=== PATIENT | female | born 1935 | race Caucasian/White ===

== ENCOUNTER 2016-10-25 15:00 | Observation (INO) | payer OTHER ==
--- NOTE | ~2016-10-25 | HP ---
History And Physical [id number] [place]. [address] NAME: DAISY GARCIA : 31 STATUS : ADM Khloe PAT#: [id number] AGE: 81 ADM/REG DATE : 10/25/16 MR#: [id number] REPORT SERV DATE: 10/26/16 DICTATED BY: YEMI VEGA JR. DATE: 10/26/16 REPORT STATUS : Draft TRANSCRIBED BY: MODBenjamin DATE: 10/26/16 DATE OF ADMISSION: 10/25/2016 CHIEF COMPLAINT: Palpitations, chest pain. 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 She then developed palpitations, felt weak and dizzy over 15-hour period and finally called an ambulance. She is noted to be in atrial fibrillation/flutter, heart rate greater than 140 beats per minute with a right bundle- branch block. She was treated and converted to sinus rhythm in the ambulance. She has since remained in sinus rhythm and has had no further symptom issues. Troponin has been borderline and likely related to demand ischemia. Currently, she is asymptomatic. REVIEW OF SYSTEMS: A 10-point review of systems otherwise is unremarkable. ALLERGIES: NONE KNOWN. MEDICATIONS: Included acetaminophen, albuterol Pro inhaler, aspirin 81 mg daily, Zyrtec 10 mg daily as needed, Trusopt eyedrops, Flonase nasal spray, glucosamine chondroitin sulfate, omeprazole 20 mg daily, simvastatin 40 mg at bedtime, triamcinolone cream, Maxzide 25 daily, and Travatan eye drops. PAST MEDICAL HISTORY: Notable for history of glaucoma, history of hypertension and hyperlipidemia, history of asthma, gastroesophageal reflux, arthritis, and cataracts. PAST SURGICAL HISTORY: Notable for prior benign cysts removed from her breast, colonoscopy, cataract resection. SOCIAL HISTORY: Notable for absence of tobacco or ethanol use. FAMILY HISTORY: Noncontributory. PHYSICAL EXAMINATION: VITAL SIGNS: Blood pressure is 133/68, pulse is 70 and regular, respirations 14. The patient is afebrile. HEENT: Unremarkable. NECK: Supple without jugular venous distention. CARDIOVASCULAR: Regular rhythm, 1/6 systolic murmur. LUNGS: Clear. ABDOMEN: Benign without hepatomegaly. EXTREMITIES: 1+ with no pedal edema. NEUROLOGIC: She is grossly intact. History And Physical [address] [address] NAME: DAISY GARCIA : 33 STATUS : ADM Khloe PAT#: [id number] AGE: 81 ADM/REG DATE : 10/25/16 MR#: [id number] REPORT SERV DATE: 10/26/16 DICTATED BY: YEMI VEGA JR. DATE: 10/26/16 REPORT STATUS : Draft TRANSCRIBED BY: MODL DATE: 10/26/16 IMAGING: EKG is notable for sinus rhythm with incomplete right bundle-branch block, minor nonspecific ST changes, left axis deviation. Chest x-ray reported unremarkable. LABORATORY DATA: Sodium 135, potassium 3.3, chloride 99, CO2 not performed, BUN 17, creatinine 0.9, glucose of 95, calcium 9.4, magnesium 2.4. Hemoglobin and hematocrit are 13.8 and 41.0, white count 5, platelet count of 307,000. INR of 1, troponin of 0.07 and 0.09, TSH of 1.9. IMPRESSION: An 81-year-old white female with hypokalemia, recent gastroenteritis, atrial fibrillation with rapid ventricular rate with demand ischemia. PLANS AND RECOMMENDATIONS: 1. Correction of electrolytes. 2. Nuclear stress. 3. Echo. 4. CHADS score risk assessment with plans for Electrophysiology consultation with further recommendations to follow. XIOMARA/ANAND Yemi Vega Jr., M.D. / [id number] CC: Nara Powell Jr., M.D.
--- NOTE | ~2016-10-25 | ECH ---
Echocardiogram [facility] [address] [place]. [address] NAME: DAISY GARCIA : 31 STATUS : DIS Khloe PAT#: [id number] AGE: 81 ADM/REG DATE : 10/25/16 MR#: [id number] REPORT SERV DATE: 10/27/16 DICTATED BY: YEMI VEGA JR. DATE: 10/27/16 REPORT STATUS : Draft TRANSCRIBED BY: MODL DATE: 10/27/16 INDICATIONS: Chest pain, arrhythmia, palpitations, atrial fibrillation. TECH: Lana Wayne is RDCS. 2-D INTERPRETATION: M-mode and 2-dimensional echocardiography were performed. The left atrium was normal in size measuring 3 cm compared to an aortic root diameter of 3.1 cm. The left ventricle is normal in size measuring 3.4 cm in end-diastole and 2.5 cm in end-systole. Overall, there appeared to be normal left ventricular systolic function without regional wall motion abnormality with ejection fraction approximately 60%. The aortic valve was trileaflet. The mitral valve appeared to be thickened and sclerotic. The remaining cardiac valves appeared to be structurally normal. No obvious pericardial or pleural effusion could be seen. No intracardiac mass could be identified. DOPPLER/COLOR FLOW: Conventional and Doppler color flow imaging were performed. Mitral inflow patterns were abnormal suggesting diminished left ventricular compliance for the patient's age. There was mild mitral insufficiency. There was tricuspid insufficiency. Peak right ventricular systolic pressure of 19 mmHg. Peak gradient across the aortic valve measured 5 mmHg. Neither significant stenosis or insufficiency of the remaining cardiac valves could be visualized. CONCLUSION: NORMAL LEFT VENTRICULAR SYSTOLIC FUNCTION WITH DIMINISHED LEFT VENTRICULAR COMPLIANCE. MITRAL VALVE SCLEROSIS AND CALCIFICATION WITH MILD MITRAL INSUFFICIENCY. TRICUSPID INSUFFICIENCY WITH NORMAL PULMONARY PRESSURES. /ANAND Yemi Vega Jr., M.D. / [id number] CC: Nara Powell Jr., M.D.
--- NOTE | ~2016-10-25 | CN ---
Consultation Report [address] [place]. [address] NAME: DAISY CHILDERS : 31 STATUS : DIS Khloe PAT#: [id number] AGE: 81 ADM/REG DATE : 10/25/16 MR#: [id number] REPORT SERV DATE: 10/26/16 DICTATED BY: ANKUR RAMÍREZ DATE: 10/26/16 REPORT STATUS : Draft TRANSCRIBED BY: MODL DATE: 10/26/16 CONSULTATION DATE OF CONSULTATION: 10/26/2016 REASON FOR THE VISIT: Atrial fibrillation. HISTORY OF PRESENT ILLNESS: Ms. Childers is an 81-year-old, overall healthy active female, who has presented with chest pain that turned out to be atrial fibrillation. She has undergone a stress test that was negative today. She reports no other episodes like this. When she was picked up by the ambulance, she was in atrial fibrillation but that resolved quickly. She has had no more atrial fibrillation since she has been here. As above, she remains active and has no limitations because of chest pain or shortness of breath. No recent syncope or presyncope. PAST MEDICAL HISTORY: 1. Hypertension. 2. Hyperlipidemia. 3. History of asthma. 4. GERD. 5. Arthritis. SOCIAL HISTORY: She does not smoke. FAMILY HISTORY: Noncontributory. HOME MEDICATIONS: 1. Tylenol. 2. Albuterol inhaler. 3. Aspirin 81 mg daily. 4. Zyrtec 10 mg as needed. 5. Flonase inhaler. 6. Prilosec 20 mg daily. 7. Zocor 40 mg daily. 8. Maxzide 37.5/25 mg daily. 9. Eye drops. ALLERGIES: NO KNOWN DRUG ALLERGIES. REVIEW OF SYSTEMS: A 10 system review was asked and is basically negative except for noted above in history of present illness. As above, she was in her present state of health which was very good before this occurred. Consultation Report [address] [place]. [address] NAME: DAISY CHILDERS : 31 STATUS : DIS Khloe PAT#: [id number] AGE: 81 ADM/REG DATE : 10/25/16 MR#: [id number] REPORT SERV DATE: 10/26/16 DICTATED BY: AKNUR RAMÍREZ DATE: 10/26/16 REPORT STATUS : Draft TRANSCRIBED BY: MODL DATE: 10/26/16 PHYSICAL EXAMINATION: VITAL SIGNS: Ms. Childers is afebrile with temperature of 97.9, heart rate 83, blood pressure 127/75. GENERAL: Ms. Childers is a well-developed female, in no acute distress. She is alert and oriented to person and place. HEENT: Negative. She is not dehydrated. LUNGS: Clear. NECK: No JVD is seen in her neck. HEART: Tones are regular. No major murmur is heard. ABDOMEN: Negative. She has good bowel sounds. EXTREMITIES: Does not show edema. NEUROLOGIC: She is intact with normal speech and normal strength in her arms bilaterally. SKIN: Does not show bruising. LABORATORY DATA: White blood cell count 5, hematocrit 41, platelet count 307. INR 1.0. Sodium 134, potassium 4.0, BUN 18, creatinine 0.8, magnesium 2.3. Troponin peaked at 0.09. TSH 1.9. ELECTROCARDIOGRAM: The initial electrocardiogram from the [facility] documents atrial fibrillation with a rapid ventricular response. The electrocardiogram here about 04:00 a.m. this morning shows sinus rhythm in the 70s. Normal axis. Good R-wave progression. No other major findings. Nuclear medicine stress test, this was performed today and was negative. ECHOCARDIOGRAM: This has been performed, but not officially read. I looked at it quickly. On the echo reading system, I did not see any major surprises. She does not have valvular atrial fibrillation. Ejection fraction is normal. IMPRESSION: 1. Paroxysmal atrial fibrillation, newly diagnosed. 2. Hypertension. PLAN: Ms. Childers had atrial fibrillation, but is back in sinus rhythm. With this new diagnosis, her CHADS-VASc score is 4 because of age, sex, and hypertension. She therefore would benefit from therapeutic anticoagulation. We spoke about this. We will start her on Pradaxa 150 mg b.i.d. She was warned of bleeding and she will watch out for this. At this time, I do not think she needs any further medications. If she has any sort of recurrence, we will consider something easy like Cardizem or possibly an antiarrhythmic medication depending on her wishes. Ms. Childers agrees with this plan. Since she is stable, it is okay with me if she goes home today. [facility] Consultation Report [facility] [address] [place]. [address] NAME: DAISY CHILDERS : 31 STATUS : DIS Khloe PAT#: [id number] AGE: 81 ADM/REG DATE : 10/25/16 MR#: [id number] REPORT SERV DATE: 10/26/16 DICTATED BY: ANKUR RAMÍREZ DATE: 10/26/16 REPORT STATUS : Draft TRANSCRIBED BY: MODL DATE: 10/26/16 Ankur Ramírez M.D. / [id number] CC: Nara Powell Jr., M.D.
[2016-10-25 13:50] LABS: BASOPHILS 0.5 %; BASOPHILS ABSOLUTE 0.04 10/3/uL (0.0-0.16); EOSINOPHILS 3.1 %; EOSINOPHILS ABSOLUTE 0.24 10/3/uL (0.0-0.53); HEMATOCRIT 40.8 % (36.0-48.0); HEMOGLOBIN 14.3 g/dL (12.0-16.0); IMMATURE GRANULOCYTES 0.1 %; IMMATURE GRANULOCYTES ABSOLUTE 0.01 10/3/uL (0.0-0.11); LYMPHOCYTES 28.8 %; MANUAL DIFF NO %; MEAN CORPUSCULAR HEMOGLOB 31.2 pg (26.0-34.0); MEAN CORPUSCULAR VOLUME 88.9 fL (80-100); MEAN PLATELET VOLUME 9.3 fL (9.2-13.0); MONOCYTES 8.5 %; MONOCYTES ABSOLUTE 0.65 10/3/uL (0.21-1.20); NEUTROPHILS ABSOLUTE 4.49 10/3/uL (2.02-8.40); PLATELET COUNT 301 10/3/uL (150-400); RED CELL COUNT 4.59 10/6/uL (4.0-5.6); WHITE BLOOD CELLS 7.6 10/3/uL (4.5-10.5)
[2016-10-25 13:58] LABS: PARTIAL THROMBO TIME 26.3 SEC (22.5-37.2); PROTIME (NOT ORD) 13.4 SEC (12.0-14.5)
[2016-10-25 14:13] LABS: BUN (BLOOD UREA NITROGEN) 17 MG/DL (6-23); CALCIUM, SERUM 9.4 MG/DL (8.5-10.4); CHEST PAIN PROFILE TAT 0 Hrs 27 Mins; CHLORIDE, SERUM 99 MMOL/L (96-112); CO2 (CARBON DIOXIDE) 24 MMOL/L (24-34); CREATININE 0.94 MG/DL (0.55-1.02); GFR AFRICAN AMERICAN 65 ML/MIN (>=60); GFR NON AFRICAN AMERICAN 56 ML/MIN (>=60); GLUCOSE, SERUM 95 MG/DL (60-99); POTASSIUM, SERUM 3.3 MMOL/L (3.5-5.3); SODIUM, SERUM 135 MMOL/L (135-148); TROPONIN I 0.07 NG/ML (<0.05)
[~2016-10-25 15:00] MED LIST: ACET500CAP PO; ADVAIR250 INH; ASAB PO; CALTRAT600 PO; FLONASE NAS; MAX25 PO; MULTIPLE VIT PO; NASONEX NAS; OSTEO BI-FLEX1 EACH PO; OSTEO BI-FLX PO; PRILO PO; PROAIR HFA INH; PROAIRRESP INH; SYMBICORT 160/41 INH INH; TRAVATAN Z 0.004% OPH; TRAVATAN Z0.004 % OPH; TRIAMCINOLONE C80 GM TOP; TRUSOPT2 % OPH; TYLENOL ARTH650 MG PO; XOPENEX HFA INH; ZOCOR20 PO; ZOCOR40 PO; ZYRTEC ALLGY10 MG PO
[2016-10-26 04:32] LABS: ASCORBIC ACID (UR NOT ORDER) 20 (NEG); BILIRUBIN, URINE NEGATIVE (NEG); KETONE, URINE NEGATIVE (NEG); LEUKOCYTE ESTERASE(NOT OR NEG (NEG); WBC (NOT ORDERED) (RFLEX) 1 (0-5)
[2016-10-26 04:42] LABS: BASOPHILS 1.4 %; BASOPHILS ABSOLUTE 0.07 10/3/uL (0.0-0.16); EOSINOPHILS 4.8 %; EOSINOPHILS ABSOLUTE 0.24 10/3/uL (0.0-0.53); HEMOGLOBIN 13.8 g/dL (12.0-16.0); LYMPHOCYTES 47.5 %; LYMPHOCYTES ABSOLUTE 2.36 10/3/uL (0.67-4.30); MEAN CORPUS HGB CONC 33.7 g/dL (32.0-36.0); MEAN CORPUSCULAR HEMOGLOB 30.3 pg (26.0-34.0); MEAN CORPUSCULAR VOLUME 90.1 fL (80-100); MEAN PLATELET VOLUME 9.4 fL (9.2-13.0); MONOCYTES 11.7 %; MONOCYTES ABSOLUTE 0.58 10/3/uL (0.21-1.20); NEUTROPHILS 34.6 %; NEUTROPHILS ABSOLUTE 1.72 10/3/uL (2.02-8.40); PLATELET COUNT 307 10/3/uL (150-400); RBC DISTRIBUTION WIDTH 12.8 % (12.0-16.0); RED CELL COUNT 4.55 10/6/uL (4.0-5.6)
[2016-10-26 04:43] LABS: MANUAL DIFF NO %
[2016-10-26 05:00] LABS: CHOL/HDL RATIO(NOT ORDER) 2.8 (0-5)
[2016-10-26 07:47] LABS: BUN (BLOOD UREA NITROGEN) 18 MG/DL (6-23); CALCIUM, SERUM 8.6 MG/DL (8.5-10.4); CHLORIDE, SERUM 99 MMOL/L (96-112); CO2 (CARBON DIOXIDE) 28 MMOL/L (24-34); CREATININE 0.84 MG/DL (0.55-1.02); GFR AFRICAN AMERICAN 74 ML/MIN (>=60); GFR NON AFRICAN AMERICAN 64 ML/MIN (>=60); GLUCOSE, SERUM 114 MG/DL (60-99); SODIUM, SERUM 134 MMOL/L (135-148)
[2016-10-26] MEDS ORDERED: PRADAXA150 MG PO (17:09)
== END 2016-10-26 17:56 | disposition home or self-care (01) ==
LOC: ER 15:00 → CDU1 16:13 → CDU2 16:25
PROVIDERS: Hospitalist; Internal Medicine Cardiovascular Disease
DX: I48.0 Paroxysmal atrial fibrillation (principal); I10 Essential (primary) hypertension; E78.5 Hyperlipidemia, unspecified; J45.909 Unspecified asthma, uncomplicated; E78.00 Pure hypercholesterolemia, unspecified; K21.9 Gastro-esophageal reflux disease without esophagitis; M19.90 Unspecified osteoarthritis, unspecified site; Z79.82 Long term (current) use of aspirin; Z79.899 Other long term (current) drug therapy; Z98.890 Other specified postprocedural states; Z87.891 Personal history of nicotine dependence
CPT/HCPCS: 71010; 78452; 80048; 80061; 81001; 83735; 84443; 84460; 84484; 85025; 85610; 85730; 93005; 93017; 93306; 96372; 99285; A9270-GY; A9502; G0378; J2785